=== PATIENT | female | born 2000 | race Caucasian/White ===

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

== ENCOUNTER 2024-05-24 03:13 | Inpatient (IN) ==
[2024-05-24] MEDS ORDERED: Lidocaine 1% VIAL 10 MG/ML 30 ML VIAL INJ PRN (04:28)
[2024-05-24 04:54] LABS: ABS Basophils 0.1 10^3/uL (0.0-0.1); ABS Eosinophils 0.1 10^3/uL (0.0-0.5); ABS Lymphocytes 2.9 10^3/uL (1.0-4.8); ABS Monocytes 1.1 10^3/uL (0.0-0.9); ABS Neutrophils 7.8 10^3/uL (1.5-7.6); ABS Nucleated RBC 0.01 10^3/ul; Eosinophil % 0.9 %; Hematocrit 37.8 % (35-45); Hemoglobin 13.1 g/dL (11.5-14.3); Lymphocyte % 24.3 %; Mean Corpuscular Hemoglobin 29.1 pg (27-33); Mean Corpuscular Hgb Conc 34.7 g/dL (31-36); Mean Corpuscular Volume 83.7 fL (80-97); Mean Platelet Volume 9.7 fL (7.5-11.2); Nucleated Red Blood Cells % 0.1 %/100WBC (0.0-0.8); Platelet Count 193 10^3/uL (150-450); Red Blood Count 4.52 10^6/uL (3.63-4.92); Red Cell Distribution Width 13.7 % (12-17); White Blood Count 12.1 10^3/uL (3.8-11.8)
[2024-05-24 05:17] LABS: Urine Benzodiazepine Screen None Detected (None Detect); Urine Cannabinoids Screen None Detected (None Detect); Urine Opiates Screen None Detected (None Detect)
[2024-05-24] MEDS: Lactated Ringers 1000 ml BAG 1,000 ML IV ONE ×2 (07:03→13:59)
[2024-05-24] MEDS: fentaNYL 100 mcg/2 ml 50 MCG/ML VIAL ONE ×2 (08:00→22:49)
[2024-05-24] MEDS ORDERED: Sodium Citrate/Citric Acid LIQ 15 ML UDC PO PRN (08:39)
[2024-05-24] MEDS: Lactated Ringers 1000 ml BAG 1,000 ML IV SCH ×2 (08:52→22:48)
[2024-05-24] MEDS: OBEPIDURAL (200 ML) 200 ML EPIDURAL SCH (08:54)
[2024-05-24] MEDS: Lidocaine 1.5% EPI 1:200,000 30 ML SDV ONE (09:03)
[2024-05-24] MEDS: Oxytocin in LR 20,000 MILLI.UNIT/1,000 ML BAG IV SCH (11:17)
[2024-05-24] MEDS: Prochlorperazine 5 mg/ml 2 ml VIAL (10 mg) IV ONE (20:56)
[2024-05-24] MEDS ORDERED: Glycerin ADULT 2.4 gm SUPP PR PRN (21:18)
[2024-05-24] MEDS ORDERED: Lactated Ringers 1000 ml BAG 1,000 ML IV SCH (22:00)
[2024-05-24] MEDS: Witch Hazel PAD JAR TOPICAL PRN (22:30)
[2024-05-24] MEDS: Bupivacaine 0.25% SDV PF 10 ML VIAL INJ ONE ×3 (22:48→22:51)
[2024-05-24] MEDS: OBEPIDURAL (200 ML) 200 ML EPIDURAL ONE (22:49)
[2024-05-24] MEDS: Tranexamic Acid 1 GM/100ML BAG 0 MG/0 ML BAG IV ONE (22:49)
[2024-05-24] MEDS: Buffered Lidocaine 1% SYRIN 1 ml INTRADERM ONE (22:51)
[2024-05-24] MEDS: Lidocaine 2% JELLY 6 ML Topical TOPICAL ONE (23:00)
[2024-05-25 02:38] LABS: Urine Appearance Turbid; Urine Bilirubin Negative (Negative); Urine Blood 3+ (Negative); Urine Color Colorless; Urine Glucose Negative (Negative); Urine Ketones 1+ (Negative); Urine Nitrite Negative (Negative); Urine Protein 1+ (>=30 mg/dL) (Negative); Urine Specific Gravity 1.007 (1.002-1.030); Urine Urobilinogen Negative (Negative); Urine pH 7.5 (5.0-8.0)
[2024-05-25 02:43] LABS: Urine Bacteria Absent /HPF (Absent); Urine Red Blood Cell 3+(>10/hpf) /HPF (0-Trace); Urine White Blood Cell 2+(11-20/hpf) /HPF (0-Trace)
[2024-05-25] MEDS: Dibucaine 1% OINT 28.35 GM TUBE PR PRN (05:21)
[2024-05-25 07:40] LABS: ABS Basophils 0.1 10^3/uL (0.0-0.1); ABS Lymphocytes 2.3 10^3/uL (1.0-4.8); ABS Monocytes 0.9 10^3/uL (0.0-0.9); ABS Neutrophils 10.4 10^3/uL (1.5-7.6); ABS Nucleated RBC 0.01 10^3/ul; Eosinophil % 0.4 %; Hematocrit 32.8 % (35-45); Hemoglobin 11.4 g/dL (11.5-14.3); Lymphocyte % 16.8 %; Mean Corpuscular Hemoglobin 29.4 pg (27-33); Mean Corpuscular Hgb Conc 34.8 g/dL (31-36); Mean Corpuscular Volume 84.5 fL (80-97); Mean Platelet Volume 9.1 fL (7.5-11.2); Platelet Count 197 10^3/uL (150-450); Red Blood Count 3.89 10^6/uL (3.63-4.92); Red Cell Distribution Width 13.8 % (12-17); White Blood Count 13.8 10^3/uL (3.8-11.8)
[2024-05-26] MEDS ORDERED: RHO D Immune Globulin (HUMAN) 300 MCG = 1,500 I.U. INJ IM PRN (01:31)
[2024-05-26 08:18] VITALS: BP 111/54
== END 2024-05-26 14:16 | disposition home or self-care (01) | DRG 560 ==
LOC: MCHOBOUT 03:13 → MCHOB 03:58
PROVIDERS: ADMIT Midwife; ATTEND Advanced Practice Midwife